=== PATIENT | male | born 1985 | race Caucasian/White ===

== ENCOUNTER 2017-02-15 09:05 | Emergency (ER) | payer SELFPAY ==
[~2017-02-15] VITALS: Ht 182.9 cm; Wt 93.9 kg
[2017-02-15 09:14] VITALS: BP 145/75; PULSE 89; RESP 16; TEMP 97.4; O2SAT 100
[2017-02-15] MEDS ORDERED: KETOROLAC TROMETHAMINE 60 MG/2 ML (IM) VIAL IM ONE (09:30)
[2017-02-15] MEDS ORDERED: DEXAMETHASONE SOD PHOS 4 MG/ML VIAL IM ONE (09:30)
--- NOTE | 2017-02-15 09:40 | PD ---
HPI Chief Complaint: Back/ Neck Pain or Injury Time Seen by Provider: 09:22 Travel History International Travel<30 days: No Contact w/Intl Traveler<30days: No Traveled to known affect area: No History of Present Illness HPI 31-year-old male complains of low back pain. Patient states that he had low back pain about 2 and a half years ago. Patient was seen in emergency room outside of the state and had an x-ray done of the back. Patient states that the back pain resolved subsequently. Patient states that his having intermittent low back pain for the past 3 months. Patient states that the pain is worse since last night after he sneezed. Patient denies any headache. Patient denies any chest pain or shortness of breath. Patient denies abdominal pain. Patient states that the pain radiated to both legs. Patient denies any focal weakness or numbness of extremity. Patient denies any bladder or bowel control problems. Patient denies any numbness sensation on the pelvic area. PFSH Social History Tobacco Use: No Allergies-Medications (Allergen,Severity, Reaction): Coded Allergies: No Known Allergies (Verified Allergy, Unknown, 02/15/17) Reported Meds & Prescriptions Reported Meds & Active Scripts Active Robaxin (Methocarbamol) 750 Mg Tab 750 Mg PO QID Mobic (Meloxicam) 15 Mg Tab 15 Mg PO DAILY Review of Systems General / Constitutional: No: Fever Eyes: No: Visual changes HENT: No: Headaches Cardiovascular: No: Chest Pain or Discomfort Respiratory: No: Shortness of Breath Gastrointestinal: No: Abdominal Pain Genitourinary: No: Dysuria Musculoskeletal: No: Pain Skin: No Rash Neurologic: No: Weakness Psychiatric: No: Depression Endocrine: No: Polydipsia Hematologic/Lymphatic: No: Easy Bruising Physical Exam Narrative GENERAL: Well-nourished, well-developed patient. SKIN: Focused skin assessment warm/dry. HEAD: Normocephalic. EYES: No scleral icterus. No injection or drainage. NECK: Supple, trachea midline. No JVD or lymphadenopathy. CARDIOVASCULAR: Regular rate and rhythm without murmurs, gallops, or rubs. RESPIRATORY: Breath sounds equal bilaterally. No accessory muscle use. GASTROINTESTINAL: Abdomen soft, non-tender, nondistended. MUSCULOSKELETAL: No cyanosis, or edema. BACK: Patient has moderate tenderness on palpation lumbar area, without obvious deformity. No CVA tenderness. Negative straight leg raising. Neurologic exam normal. Data Data Last Documented VS Vital Signs Date Time Temp Pulse Resp B/P (MAP) Pulse Ox O2 Delivery O2 Flow Rate FiO2 02/15/17 11:00 16 02/15/17 09:14 97.4 89 145/75 (98) 100 Orders Orders Spine, Lumbar - Ltd (Ap & Lat) (02/15/17 09:27) Ketorolac Inj (Toradol Inj) (02/15/17 09:30) Dexamethasone Inj (Decadron Inj) (02/15/17 09:30) Ed Discharge Order (02/15/17 10:51) [facility] Medical Decision Making Medical Screen Exam Complete: Yes Emergency Medical Condition: Yes Interpretation(s) 10:47 AM. X-ray lumbar spine shows no acute bony injury. Differential Diagnosis Differential diagnosis including strain, fracture, HNP. Narrative Course 31-year-old male with low back pain. Diagnosis Primary Impression: Acute lumbar myofascial strain Qualified Codes: S39.012A - Strain of muscle, fascia and tendon of lower back , initial encounter Patient Instructions: General Instructions Additional Instructions: Take medications as directed. Follow-up with an orthopedist. Apply moist heat to the back. Med/Other Pt SpecificInfo: Prescription(s) given Scripts Methocarbamol (Robaxin) 750 Mg Tab 750 MG PO QID for Muscle Spasm, #40 TAB 0 Refills Prov: Germain Dale MD 02/15/17 Meloxicam (Mobic) 15 Mg Tab 15 MG PO DAILY for Pain, #30 TAB 0 Refills Prov: Germain Dale MD 02/15/17 Disposition: 01 DISCHARGE HOME Condition: Stable Germain Dale MD Feb 15, 2017 09:40
[2017-02-15] MEDS ORDERED: ROBA750T PO (10:49)
[2017-02-15] MEDS ORDERED: MOBI15TA PO (10:49)
--- NOTE | 2017-02-15 10:53 | RADRPT ---
EXAM DATE/TIME: 02/15/2017 10:23 CORRECTION Corrected on: February 15, 2017; [place] COMPARISON: No previous studies available for comparison. INDICATIONS : Sudden onset of severe low back pain after sneezing MEDICAL HISTORY : None. SURGICAL HISTORY : None. ENCOUNTER: Initial ACUITY: 1 day PAIN SCORE: 10/10 LOCATION: Bilateral low back FINDINGS: Two view examination was performed. There are five non-rib bearing vertebral bodies. The vertebral bodies are in normal alignment without evidence of subluxation or scoliosis. The disc spaces are javon ntained. The pedicles are intact. Bony mineralization is normal. No acute lumbar fracture is ident ified. There is mild compression deformity involving T9 of indeterminate age. CONCLUSION: 1. No acute compression fracture, spondylosis or spondylolysis within the lumbar spine. 2. Mild compression deformity involving T9 of indeterminate age. Abraham La MD on February 15, 2017 at 10:50 Board Certified Radiologist. This report was verified electronically. Abraham La MD on February 15, 2017 at 10:53 Board Certified Radiologist. This report was verified electronically.
[2017-02-15 11:00] VITALS: RESP 16
== END 2017-02-15 11:01 | disposition home or self-care (01) ==
LOC: PHED 09:05
DX: S39.012A Strain of muscle, fascia and tendon of lower back, initial encounter (principal); X58.XXXA Exposure to other specified factors, initial encounter
CPT/HCPCS: 72100; 96372; 99284; J1100; J1885